=== PATIENT | female | born 1955 | race Caucasian/White ===

== ENCOUNTER 2018-04-17 14:55 | Emergency (ER) | payer BC ==
[2018-04-17 15:48] VITALS: BP 123/87
--- NOTE | 2018-04-17 16:35 | UC ---
Respiratory Complaint HPI - HPI Summary HPI Summary: The patient is a 62-year-old female with a two-week history of nasal congestion sinus pressure and postnasal drip. Here because she has had sore throat for 24 hours. She states she has been feeling feverish. She is a diabetic. - History of Current Complaint Chief Complaint: UCGeneralIllness Stated Complaint: SORE THROAT,FEVER Time Seen by Provider: 04/17/18 16:12 Hx Obtained From: Patient Onset/Duration: Gradual Onset, Lasting Weeks Timing: Constant Severity Initially: Mild Severity Currently: Moderate Pain Intensity: 6 Pain Scale Used: 0-10 Numeric Aggravating Factors: Nothing Alleviating Factors: Nothing Associated Signs And Symptoms: Positive: Fever, Nasal Congestion, Sinus Discomfort - Allergies/Home Medications Allergies/Adverse Reactions: Allergies Allergy/AdvReac Type Severity Reaction Status Date / Time aspirin Allergy Bleeding Verified 04/17/18 15:40 codeine Allergy Hives Verified 04/17/18 15:40 doxycycline Allergy Nausea And Verified 04/17/18 15:40 Vomiting ibuprofen Allergy Hives Verified 04/17/18 15:40 Penicillins Allergy Hives Verified 04/17/18 15:40 Sulfa (Sulfonamide Allergy Hives Verified 04/17/18 15:40 Antibiotics) Home Medications: Home Medications Thyroid,Pork [Retail Account Representative Thyroid 15] 65 mg PO QID 04/17/18 [History Confirmed 04/17/18] PMH/Surg Hx/FS Hx/Imm Hx Previously Healthy: Yes Endocrine History: Diabetes, Dyslipidemia Respiratory History: Asthma GI/ History: Gastroesophageal Reflux - Surgical History Surgical History: Yes Surgery Procedure, Year, and Place: c sect, gall bladder, laproscopic, thyroid - Family History Known Family History: Positive: Hypertension - Social History Alcohol Use: None Substance Use Type: None Smoking Status (MU): Light Every Day Tobacco Smoker Type: Cigars Amount Used/How Often: 6 per day When Did the Patient Quit Smoking/Using Tobacco: APPROX 1.5 YRS AGO - Immunization History Most Recent Influenza Vaccination: Fall 2013 Review of Systems All Other Systems Reviewed And Are Negative: Yes Constitutional: Positive: Negative Skin: Positive: Negative Eyes: Positive: Negative ENT: Positive: Sore Throat, Nasal Discharge, Sinus Congestion, Sinus Pain/ Tenderness Respiratory: Positive: Cough Cardiovascular: Positive: Negative Gastrointestinal: Positive: Negative Genitourinary: Positive: Negative Motor: Positive: Negative Neurovascular: Positive: Negative Musculoskeletal: Positive: Negative Neurological: Positive: Negative Psychological: Positive: Negative Physical Exam Triage Information Reviewed: Yes Appearance: Well-Appearing, No Pain Distress, Well-Nourished Vital Signs: Initial Vital Signs Temp 99.3 F 04/17/18 15:43 Pulse 109 04/17/18 15:43 Resp 17 04/17/18 15:43 BP 123/87 04/17/18 15:43 Pulse Ox 95 04/17/18 15:43 Vital Signs Reviewed: Yes Eyes: Positive: Conjunctiva Clear ENT: Positive: Hearing grossly normal, Pharyngeal erythema, Sinus tenderness, Uvula midline. Negative: Nasal congestion, Nasal drainage, Tonsillar exudate, Trismus, Muffled voice, Hoarse voice Neck: Positive: Supple, Nontender, No Lymphadenopathy Respiratory: Positive: Lungs clear, Normal breath sounds, No respiratory distress, No accessory muscle use Cardiovascular: Positive: RRR, No Murmur Musculoskeletal: Positive: ROM Intact, No Edema Neurological Exam: Normal Neurological: Positive: Alert Psychological Exam: Normal Skin Exam: Normal UC Diagnostic Evaluation - Laboratory O2 Sat by Pulse Oximetry: 95 - normal/not hypoxic Diagnostic Studies Comment: strep (-) Respiratory Course/Dx - Differential Dx/Diagnosis Provider Diagnosis: Acute sinusitis Discharge - Sign-Out/Discharge Documenting (check all that apply): Patient Departure All imaging exams completed and their final reports reviewed: No Studies - Discharge Plan Condition: Stable Disposition: HOME Prescriptions: ceFUROXime TAB(*) [Ceftin TAB(*)] 250 mg PO BID #14 tab Fluconazole 150 MG (NF) [Diflucan 150 mg (NF)] 150 mg PO ONCE #1 tab Patient Education Materials: Sinusitis (ED) Referrals: Angela Banerjee MD [Primary Care Provider] - 5 Days () Additional Instructions: recheck next week if not better - Billing Disposition and Condition Condition: STABLE Disposition: Home
== END 2018-04-17 16:42 | disposition home or self-care (01) ==
LOC: UCCORT 14:55
DX: J01.90 Acute sinusitis, unspecified (principal); E11.9 Type 2 diabetes mellitus without complications; Z88.0 Allergy status to penicillin; Z88.5 Allergy status to narcotic agent; Z88.6 Allergy status to analgesic agent; Z88.2 Allergy status to sulfonamides; F17.210 Nicotine dependence, cigarettes, uncomplicated
CPT/HCPCS: 87651; 99212; G0463

== ENCOUNTER 2018-07-16 13:07 | Emergency (ER) | payer BC ==
[2018-07-16 13:30] VITALS: BP 100/82
--- NOTE | 2018-07-16 14:10 | UC ---
Back Pain HPI - HPI Summary HPI Summary: patient has alot of different complaints. she has hx of kidney stones and started having flank pain. that radiates to the front, it is constant. she saw GI doctor yesterday and he ordered a CT scan that she is to have done tomorrow. She denies any change in bowel or bladder function. denies any Lower abdominal pain or pressure, denies any fever. does have a hx of thyroid cancer with a thyroidectomy and is complaining of lymphadenopathy on both sides of the neck. also hx of fibromyalgia and chronic fatique. - History of Current Complaint Chief Complaint: UCGU Stated Complaint: LOW BACK PAIN Time Seen by Provider: 07/16/18 13:39 Hx Obtained From: Patient ?: No Onset/Duration: Sudden Onset, Lasting Days Timing: Constant Severity Initially: Severe Severity Currently: Severe Pain Intensity: 10 Back Pain: Is Discrete @ - right flank and side Character: Aching, Burning Aggravating Factor(s): Nothing Alleviating Factor(s): Nothing Associated Signs And Symptoms: Positive: Redness, Tingling - Allergies/Home Medications Allergies/Adverse Reactions: Allergies Allergy/AdvReac Type Severity Reaction Status Date / Time aspirin Allergy Bleeding Verified 07/16/18 13:25 codeine Allergy Hives Verified 07/16/18 13:25 doxycycline Allergy Nausea And Verified 07/16/18 13:25 Vomiting ibuprofen Allergy Hives Verified 07/16/18 13:25 Penicillins Allergy Hives Verified 07/16/18 13:25 Sulfa (Sulfonamide Allergy Hives Verified 07/16/18 13:25 Antibiotics) Home Medications: Home Medications Acetaminophen [Acetaminophen Extra Strength] 500 mg PO ONCE 07/16/18 [History Confirmed 07/16/18] Potassium Chlor TAB* [Klor Con ER TAB*] 10 meq PO BID 07/16/18 [History Confirmed 07/16/18] PMH/Surg Hx/FS Hx/Imm Hx Previously Healthy: No - cancer Endocrine History: Diabetes, Thyroid Disease GI/ History: Gastroesophageal Reflux, Gall Bladder Disease, Kidney Stones - Surgical History Surgical History: Yes Surgery Procedure, Year, and Place: c sect, gall bladder, laproscopic, thyroid - Family History Known Family History: Positive: Hypertension - Social History Alcohol Use: Rare Substance Use Type: None Smoking Status (MU): Light Every Day Tobacco Smoker Type: Cigars Amount Used/How Often: 1 per day When Did the Patient Quit Smoking/Using Tobacco: APPROX 1.5 YRS AGO - Immunization History Most Recent Influenza Vaccination: Fall 2013 Review of Systems All Other Systems Reviewed And Are Negative: Yes Constitutional: Positive: Negative Skin: Positive: Rash Eyes: Positive: Negative ENT: Positive: Negative Respiratory: Positive: Negative Cardiovascular: Positive: Negative Gastrointestinal: Positive: Negative Motor: Positive: Negative Neurovascular: Positive: Negative Musculoskeletal: Positive: Negative Neurological: Positive: Negative Psychological: Positive: Negative Is Patient Immunocompromised?: No Physical Exam Triage Information Reviewed: Yes Appearance: Well-Appearing, Well-Nourished, Pain Distress Vital Signs: Initial Vital Signs Temp 97.9 F 07/16/18 13:23 Pulse 98 07/16/18 13:23 Resp 22 07/16/18 13:23 BP 100/82 07/16/18 13:23 Pulse Ox 98 07/16/18 13:23 Vital Signs Reviewed: Yes Eye Exam: Normal ENT Exam: Normal ENT: Positive: Pharynx normal, TMs normal Dental Exam: Normal Neck: Positive: Tenderness @ - over antieror neck, Enlarged Nodes @ - bilateral cervical Respiratory Exam: Normal Respiratory: Positive: Chest non-tender, Lungs clear, Normal breath sounds Cardiovascular Exam: Normal Cardiovascular: Positive: RRR, No Murmur, Pulses Normal Abdominal Exam: Normal Abdomen Description: Positive: Nontender, No Organomegaly, Soft Bowel Sounds: Positive: Present Musculoskeletal Exam: Normal Neurological Exam: Normal Psychological Exam: Other - anxious Skin Exam: Normal Back Pain Course/Dx - Course Course Of Treatment: hx obtained, exam performed ,meds reviewed, UA was pos for gluocose, patient states she has not take her metformin. Rash consistent with shingles noted from the midline around right side of body. treaed for shingles. discussed pain management and agreed on use of tylneol heat and cold, due to pateints intolerance of medication. - Differential Dx/Diagnosis Provider Diagnosis: Right flank pain, Shingles Discharge - Sign-Out/Discharge Documenting (check all that apply): Patient Departure All imaging exams completed and their final reports reviewed: No Studies - Discharge Plan Condition: Stable Disposition: HOME Prescriptions: ValACYclovir (*) [Valtrex 1 GM(*)] 1 gm PO BID #14 tab Patient Education Materials: Shingles (ED) Referrals: Segun Jackson MD [Primary Care Provider] - Additional Instructions: 1. take the medication as prescribed. 2. Heat and cold to area as tolerated. 3. Do not apply anything topically 4. Follow up if you develop any further symptoms of unexplained abdominal pain - Billing Disposition and Condition Condition: STABLE Disposition: Home
== END 2018-07-16 14:25 | disposition home or self-care (01) ==
LOC: UCCORT 13:07
DX: R10.9 Unspecified abdominal pain (principal); B02.9 Zoster without complications; R59.0 Localized enlarged lymph nodes; E89.0 Postprocedural hypothyroidism; E11.9 Type 2 diabetes mellitus without complications; M79.7 Fibromyalgia; R53.83 Other fatigue; F17.210 Nicotine dependence, cigarettes, uncomplicated; Z88.8 Allergy status to other drugs, medicaments and biological substances; Z88.5 Allergy status to narcotic agent; Z88.1 Allergy status to other antibiotic agents; Z85.850 Personal history of malignant neoplasm of thyroid; Z87.442 Personal history of urinary calculi; Z88.0 Allergy status to penicillin; Z88.2 Allergy status to sulfonamides
CPT/HCPCS: 81003; 99212; G0463